=== PATIENT | male | born 1970 | race Caucasian/White ===

== ENCOUNTER 2018-03-13 05:41 | Inpatient (IN) | payer OTHER ==
[2018-03-07 14:32] LABS: BASOPHILS % (AUTO) 0.7 % (0.0-2.0); EOSINOPHILS % (AUTO) 1.7 % (1.0-6.0); HEMATOCRIT 44.2 % (41-53); HEMOGLOBIN 15.2 g/dL (13.5-17.5); LYMPHOCYTES # (AUTO) 2.2 K/uL (1.0-4.8); LYMPHOCYTES % (AUTO) 42.9 % (22.0-44.0); MEAN CORPUSCULAR HEMOGLOBIN 32.8 pg (26.0-34.0); MEAN CORPUSCULAR HGB CONC 34.5 G/dL (31.0-37.0); MEAN CORPUSCULAR VOLUME 95 fL (80-100); MONOCYTES # (AUTO) 0.3 K/uL (0.1-1.0); MONOCYTES % (AUTO) 6.1 % (2.0-9.0); NEUTROPHILS # (AUTO) 2.5 K/uL (1.8-7.7); NEUTROPHILS % (AUTO) 48.6 % (40.0-70.0); PLATELET COUNT (AUTO) 212 K/uL (150-450); RED BLOOD CELL COUNT(AUTO) 4.64 MIL/uL (4.50-5.90); RED CELL DISTRIBUTION WIDTH 14.3 % (11.5-14.5)
[2018-03-07 14:43] LABS: ANION GAP 5 mmol/L (8-16); CALCIUM, TOTAL 9.2 mg/dL (8.8-10.5); CARBON DIOXIDE 30 mmol/L (22-29); CHLORIDE 105 mmol/L (98-107); CREATININE 1.22 mg/dL (0.60-1.30); GLOMERULAR FILTR. RATE CALC > 60 mL/min (>60); GLUCOSE,RANDOM 128 mg/dL (70-110); POTASSIUM 4.1 mmol/L (3.5-5.1); SODIUM SERUM 140 mmol/L (136-145); UREA NITROGEN, BLOOD 13 mg/dL (7-18)
[2018-03-07 14:44] LABS: INR 0.9 (0.9-1.1); PROTHROMBIN TIME 9.8 SEC (9.4-11.6)
[2018-03-07 14:48] LABS: ALANINE AMINOTRANSFERASE 28 U/L (12-78); ALBUMIN 3.9 g/dL (3.4-5.0); ALKALINE PHOSPHATASE 121 U/L (46-116); ASPARTATE AMINOTRANSFERASE 19 U/L (15-37); BILIRUBIN,TOTAL 0.6 mg/dL (0.1-1.0); TOTAL PROTEIN, SERUM 7.9 g/dL (6.4-8.2)
[~2018-03-13] VITALS: Ht 182.9 cm; Wt 100.9 kg
[2018-03-13] MEDS ORDERED: CeFAZolin 2 GM/DEXTROSE 50 ML IV ONE ×2 (05:47→07:00)
[2018-03-13] MEDS ORDERED: RINGERS SOLUTION,LACTATED 1,000 ML IV ONE ×2 (05:47→06:00)
[2018-03-13] MEDS ORDERED: THROMBIN, BOVINE 20000 UNITS/VIAL POWDER TP ONE (06:44)
[2018-03-13] MEDS ORDERED: SODIUM CHLORIDE 0.9% 10 ML ONE (06:44)
[2018-03-13] MEDS ORDERED: GELATIN SPONGE,ABSORBABLE 100 MM TP ONE (06:48)
[2018-03-13] MEDS ORDERED: RINGERS SOLUTION,LACTATED 1,000 ML IV SCH (07:00)
[2018-03-13] MEDS ORDERED: BUPIVACAINE LIPOSOME/PF 1.3%-13.3MG/ML SUSPENSION 20 ML VIAL INJ ONE (07:15)
[2018-03-13] MEDS ORDERED: ACETAMINOPHEN 1000 MG/ISO-OSM 100 ML IV ONE (08:45)
[2018-03-13] MEDS ORDERED: ONDANSETRON HCL 4 MG/2 ML VIAL IVP PRN ×2 (08:45→10:30)
[2018-03-13] MEDS ORDERED: MEPERIDINE HCL/PF 25 MG/0.5 ML AMP IVP PRN (08:45)
[2018-03-13] MEDS ORDERED: BUPIVACAINE HCL/PF 0.25% 30 ML VIAL ONE (09:38)
[2018-03-13] MEDS ORDERED: NALOXONE HCL 0.4 MG/ML VIAL IVP PRN (10:30)
[2018-03-13] MEDS ORDERED: ACETAMINOPHEN 325 MG TABLET PO PRN (10:30)
[2018-03-13] MEDS ORDERED: OxyCODONE HCL/ACETAMINOPHEN 5-325 MG TABLET PO PRN (10:30)
[2018-03-13] MEDS ORDERED: FentaNYL CITRATE-PF 100 MCG/2 ML VIAL ONE ×2 (10:40→10:57)
[2018-03-13] MEDS: FentaNYL CITRATE-PF 100 MCG/2 ML VIAL IVP PRN ×4 (10:43→11:27)
[2018-03-13] MEDS ORDERED: HYDROmorphone 2 MG/ML SYRINGE ONE (10:50)
[2018-03-13] MEDS: HYDROmorphone 2 MG/ML SYRINGE IVP PRN ×6 (10:53→22:16)
[2018-03-13] MEDS ORDERED: MEPERIDINE HCL/PF 25 MG/0.5 ML AMP ONE (11:32)
[2018-03-13 12:18] VITALS: BP 130/92
[2018-03-13] MEDS: OxyCODONE HCL/ACETAMINOPHEN 5-325 MG TABLET PO PRN (13:56)
[2018-03-13] MEDS ORDERED: SODIUM CHLORIDE 0.9% 500 ML IV ONE (14:58)
[2018-03-13] MEDS: CeFAZolin 1 GM/DEXTROSE 50 ML IV SCH ×2 (15:18→22:16)
[2018-03-13 15:28] VITALS: BP 120/82
[2018-03-13] MEDS: DOCUSATE SODIUM 100 MG CAPSULE PO SCH (19:42)
[2018-03-13 20:06] VITALS: BP 143/87
[2018-03-14] VITALS (7 sets, daily range): BP systolic 125–155; BP diastolic 76–86
[2018-03-14] MEDS: HYDROmorphone 2 MG/ML SYRINGE IVP PRN ×3 (00:29→05:53)
[2018-03-14] MEDS ORDERED: ROCURONIUM BROMIDE 10 MG/ML 5 ML VIAL IVP ONE (05:15)
[2018-03-14] MEDS ORDERED: PROPOFOL 1% 20 ML VIAL IVP ONE (05:15)
[2018-03-14] MEDS ORDERED: SUCCINYLCHOLINE CHLORIDE 20 MG/ML 10 ML VIAL IVP ONE (05:15)
[2018-03-14] MEDS ORDERED: LIDOCAINE/PF 2% 5 ML VIAL IM ONE (05:15)
[2018-03-14] MEDS ORDERED: FentaNYL CITRATE-PF 250 MCG/5 ML VIAL IVP ONE (05:15)
[2018-03-14] MEDS ORDERED: 0.9% SODIUM CHLORIDE 10 ML VIAL IVP ONE (05:15)
[2018-03-14 06:16] LABS: BASOPHILS % (AUTO) 0.3 % (0.0-2.0); EOSINOPHILS % (AUTO) 0.2 % (1.0-6.0); HEMATOCRIT 39.9 % (41-53); HEMOGLOBIN 13.9 g/dL (13.5-17.5); LYMPHOCYTES # (AUTO) 1.4 K/uL (1.0-4.8); LYMPHOCYTES % (AUTO) 16.1 % (22.0-44.0); MEAN CORPUSCULAR HEMOGLOBIN 32.8 pg (26.0-34.0); MEAN CORPUSCULAR VOLUME 94 fL (80-100); MONOCYTES # (AUTO) 0.6 K/uL (0.1-1.0); MONOCYTES % (AUTO) 6.8 % (2.0-9.0); NEUTROPHILS # (AUTO) 6.8 K/uL (1.8-7.7); NEUTROPHILS % (AUTO) 76.6 % (40.0-70.0); PLATELET COUNT (AUTO) 164 K/uL (150-450); RED BLOOD CELL COUNT(AUTO) 4.24 MIL/uL (4.50-5.90); RED CELL DISTRIBUTION WIDTH 13.8 % (11.5-14.5)
[2018-03-14 06:32] LABS: ANION GAP 7 mmol/L (8-16); CALCIUM, TOTAL 8.3 mg/dL (8.8-10.5); CARBON DIOXIDE 29 mmol/L (22-29); CHLORIDE 101 mmol/L (98-107); CREATININE 1.23 mg/dL (0.60-1.30); GLOMERULAR FILTR. RATE CALC > 60 mL/min (>60); GLUCOSE,RANDOM 110 mg/dL (70-110); POTASSIUM 3.7 mmol/L (3.5-5.1); SODIUM SERUM 137 mmol/L (136-145); UREA NITROGEN, BLOOD 11 mg/dL (7-18)
[2018-03-14] MEDS: DOCUSATE SODIUM 100 MG CAPSULE PO SCH ×2 (08:34→19:26)
[2018-03-14] MEDS: CYCLOBENZAPRINE HCL 10 MG TABLET PO PRN (08:35)
[2018-03-14] MEDS: OxyCODONE HCL/ACETAMINOPHEN 5-325 MG TABLET PO PRN (16:00)
[2018-03-14] MEDS ORDERED: DIAZEPAM 5 MG/ML 2 ML SYRINGE IVP PRN (17:00)
[2018-03-14] MEDS: DEXAMETHASONE SOD PHOS 4 MG/ML VIAL IVP SCH (18:10)
[2018-03-14] MEDS: OxyCODONE HCL 5 MG IR TABLET PO PRN (20:33)
[2018-03-15] MEDS: DEXAMETHASONE SOD PHOS 4 MG/ML VIAL IVP SCH ×4 (00:16→18:43)
[2018-03-15] MEDS: OxyCODONE HCL 5 MG IR TABLET PO PRN ×2 (02:42→05:28)
[2018-03-15 05:25] VITALS: BP 132/75
[2018-03-15 08:15] VITALS: BP 128/77
[2018-03-15] MEDS: DOCUSATE SODIUM 100 MG CAPSULE PO SCH ×2 (09:04→20:33)
[2018-03-15] MEDS: OxyCODONE HCL 10 MG IR TABLET PO PRN ×3 (09:05→20:38)
[2018-03-15 11:22] VITALS: BP 132/72
[2018-03-15 16:41] VITALS: BP 145/80
[2018-03-15 19:00] VITALS: BP 135/94
[2018-03-15] MEDS: CYCLOBENZAPRINE HCL 10 MG TABLET PO PRN (22:49)
[2018-03-16] VITALS (7 sets, daily range): BP systolic 112–142; BP diastolic 64–92
[2018-03-16] MEDS: DOCUSATE SODIUM 100 MG CAPSULE PO SCH ×2 (09:53→20:33)
[2018-03-16] MEDS: OxyCODONE HCL 10 MG IR TABLET PO PRN ×3 (09:55→20:33)
[2018-03-17 04:35] VITALS: BP 124/72
[2018-03-17 07:34] VITALS: BP 131/85
[2018-03-17] MEDS: DOCUSATE SODIUM 100 MG CAPSULE PO SCH (08:44)
[2018-03-17] MEDS: OxyCODONE HCL 10 MG IR TABLET PO PRN (08:54)
[2018-03-17] MEDS: CYCLOBENZAPRINE HCL 10 MG TABLET PO PRN (08:55)
[2018-03-17 11:30] VITALS: BP 142/94
[2018-03-17] MEDS ORDERED: OXYC10 PO (12:22)
[2018-03-17] MEDS ORDERED: CYCL10 PO (12:23)
== END 2018-03-17 13:34 | disposition home or self-care (01) | DRG 455 ==
LOC: 4E 05:41
PROVIDERS: ADMIT Neurological Surgery; ATTEND Neurological Surgery
PROC: 0SG00AJ Fusion of Lumbar Vertebral Joint with Interbody Fusion Device, Posterior Approach, Anterior Column, Open Approach (ICD-10-PCS; 2018-03-13)
PROC: 0SB20ZZ Excision of Lumbar Vertebral Disc, Open Approach (ICD-10-PCS; 2018-03-13)
PROC: 4A11X4G Monitoring of Peripheral Nervous Electrical Activity, Intraoperative, External Approach (ICD-10-PCS; 2018-03-13)
PROC: 0SG0071 Fusion of Lumbar Vertebral Joint with Autologous Tissue Substitute, Posterior Approach, Posterior Column, Open Approach (ICD-10-PCS; principal; 2018-03-13 07:30)
DX: M51.26 Other intervertebral disc displacement, lumbar region (principal); Z90.49 Acquired absence of other specified parts of digestive tract; M54.10 Radiculopathy, site unspecified
CPT/HCPCS: 86850; 86900; 86901; 86920; 87081; 88300; 97116; 97162; 97167; 97530; 97535; C1713; C9290; J0330; J0690; J1030; J1100; J1170; J2704; J3010; J3490; J7040; J7120